=== PATIENT | female | born 1960 | race Caucasian/White ===

== ENCOUNTER → 2017-05-27 | Outpatient (CLI) | payer MEDICARE ==
[~2017-05-27] MED LIST: CELEXA; HYDROCODONE-APA1 T30 PO; HYDROCODONE-APA1 T33; LORTAB 7.5-5001 TAB; PROTONIX; TRICOR PO
--- NOTE | ~2017-05-27 | CT137 ---
[facility] A Service of [facility] RADIOLOGY TEXT RESULTS PATIENT: JAZZ[facility]INE ARIAS [facility] 58 [facility] #: [id number] AGE: [address]: Carla Oro MD SEX: F ORDER DR: [id number] [facility] [address] [place], [place] [address] [id number] O MR#: [id number] Acc #: [id number] NAME: JAZZMINE ARIAS : 1960 SEX: F STUDY DATE/TIME: 05/27/2017 8:35 UNIT: [facility] ROOM: STUDY DESCRIPTION: CT Lung Screening annual Attending Physician: Carla Oro M.D. Referring Physician: Carla Oro M.D. Ordering Physician: Carla Oro M.D. Primary Care Physician: Carla Oro M.D. MEDICAL IMAGING REPORT This report is preliminary unless electronic signature is present EXAM CT chest INDICATION Lung cancer screening. 57-year-old female is a current smoker with a 57 pack year history of smoking. TECHNIQUE CT of the thorax without contrast. Coronal and sagittal reconstructions were obtained. Exam was performed as a low-dose chest CT utilizing lung cancer screening protocol. CTDI volume 2.6 mGy. DLP 95.61 mGy-cm. This CT exam was performed with one or more of the following radiation dose reduction techniques: automatic exposure control, adjustment of mA and/or kV according to patient size, and iterative reconstruction. COMPARISON Chest radiograph dated 11/19/2016. Lung cancer screening 05/07/2016. FINDINGS This is a suspicious lung cancer screening. There is a new pulmonary nodule in the left lung apex (image 17 measuring 0.7 x 0.5 x 0.6 cm) average diameter of 0.6 cm. This is categorized as a suspicious pulmonary nodule using the ACR Lung-RADS classification system. The patient has numerous calcified granuloma scattered throughout the lungs. No focal consolidation. Central airways are patent. There is mild emphysema. No pathologically enlarged mediastinal or hilar lymph nodes. There are some calcified lymph nodes indicating prior granulomatous disease. No pericardial or pleural effusion. Thoracic aorta is normal in caliber. [facility] A Service of [facility] RADIOLOGY TEXT RESULTS PATIENT: JAZZMINE ARIAS LOCATION: [facility] : 58 UNIT #: [id number] AGE: [address]: Carla Oro MD SEX: F ORDER DR: The main pulmonary artery measures 3.3 cm in diameter. Limited images of the upper abdomen were obtained. There is no acute findings. Patient has an area of renal cortical scarring in the superior left kidney. No acute osseous abnormalities. IMPRESSION 1. Suspicious lung cancer screening. There is a new 0.6 cm pulmonary nodule in the left upper lobe. The patient should undergo a 3-month follow up low-dose chest CT for further evaluation. The nodule is likely below threshold for detection with PET/CT at this time. The lesion is also too small for percutaneous biopsy. 2. Emphysema. 3. Multiple calcified granulomas and calcified mediastinal or hilar lymph nodes. This would suggest the noncalcified nodule is probably benign granuloma, however, short-interval followup is recommended to further evaluate. ACR Lung-RADS classification 4A: Suspicious lung finding for which additional diagnostic testing is recommended. RECOMMENDATIONS Low-dose chest CT in 3 months. Dictated by... Candelario Lane M.D. THIS IS AN ELECTRONICALLY VERIFIED REPORT Candelario Lane M.D. at 05/29/2017 6:04 AM Kala TD: 05/27/2017 16:10 JOB #: [id number] MEDICAL IMAGING REPORT Page 1 of 1 COPY
--- NOTE | ~2017-05-27 | MY29 ---
[facility] A Service of [facility] RADIOLOGY TEXT RESULTS PATIENT: [facility]INE ARIAS [id number] : 58 UNIT #: [id number] AGE: [address]: Carla Oro MD SEX: F ORDER DR: [id number] [facility] [address] [place], [place] [address] [id number] O MR#: [id number] Acc #: [id number] NAME: JAZZMINE ARIAS : 1960 SEX: F STUDY DATE/TIME: 05/27/2017 9:32 UNIT: [facility] ROOM: STUDY DESCRIPTION: MY CHRISTINA SCREENING W/ CAD BILAT Attending Physician: Carla Oro M.D. Referring Physician: Carla Oro M.D. Ordering Physician: Carla Oro M.D. Primary Care Physician: Carla Oro M.D. MEDICAL IMAGING REPORT This report is preliminary unless electronic signature is present EXAM Bilateral digital screening mammogram with CAD. INDICATION Breast cancer screening. 57-year-old asymptomatic female. No personal or family history of breast cancer. COMPARISON STUDIES May 19, 2016, February 28, 2015, August 17, 2013, July 30, 2012, November 13, 2010, November 07, 2008, October 23, 2008, October 13, 2007, August 14, 2006. FINDINGS The breasts are almost entirely fatty. No suspicious findings are present. IMPRESSION No mammographic evidence of malignancy. Annual screening mammography and clinical breast exam are recommended. Patients over the age of 40 are entered into a reminder system with target due date for the next mammogram. A result letter will also be sent to the patient. BIRADS: 1 Negative. Dictated by... Kilo Thrasher M.D. THIS IS AN ELECTRONICALLY VERIFIED REPORT Kilo Thrasher M.D. at 06/01/2017 1:54 PM [facility] A Service of [facility] RADIOLOGY TEXT RESULTS PATIENT: [facility]MINE ARIAS [facility] [id number] : [birth year] UNIT #: [id number] AGE: [address]: Carla Oro MD SEX: F ORDER DR: TD: 05/27/2017 15:59 JOB #: [id number] MEDICAL IMAGING REPORT Page 1 of 1 COPY
== END | disposition home or self-care (01) ==
LOC: CWCC 05-21 11:30 → CCAT 08:21 → CWCC 08:30
DX: F17.210 Nicotine dependence, cigarettes, uncomplicated (principal); Z12.31 Encounter for screening mammogram for malignant neoplasm of breast
CPT/HCPCS: G0202; G0297